=== PATIENT | female | born 1975 | race Caucasian/White ===

== ENCOUNTER → 2016-08-01 | Outpatient (CLI) | payer OTHER ==
--- NOTE | 2016-08-01 11:29 | DIAGNOSTIC IMAGING REPORT ---
ABDOMEN COMPLETE (US) CLINICAL HISTORY: Hepatic mass COMPARISON STUDY: 02/22/2011 FINDINGS: The pancreas appears sonographically normal. The right kidney measures 11 cm in length. The left kidney measures 11.5 cm in length. No focal renal masses are visualized. There is no hydronephrosis. The IVC is unremarkable in appearance. There is no evidence of abdominal aortic aneurysm. The spleen measures 9.9 cm in length. No splenic masses are visualized. There are several tiny echogenic foci within the gallbladder which do not roll and do not shadow. These are consistent with tiny polyps. There is no ductal dilatation. The common bile duct measures 2 mm. In addition to several hepatic cysts, there is a solid right lobe hepatic mass measuring 7.8 x 3.7 x 6.8 cm. This contains a few areas of calcification. This is slightly larger on the prior examination. A prior MRI study indicated this lesion represents focal nodular hyperplasia IMPRESSION: 1. Very slight interval increase in the size of the solid right lobe hepatic mass currently measuring 7.8 x 3.7 x 6.8 cm. Prior MRI study indicated this lesion represents focal nodular hyperplasia 2. Tiny gallbladder polyps. No evidence of ductal dilatation. 3. Several incidental hepatic cysts. 4. No pancreatic, renal, or splenic masses identified Electronically signed by: Cortez Gibbons M.D. 08/01/2016 11:27 AM Dictated Date/Time: 08/01/2016 11:22 AM
== END | disposition home or self-care (01) ==
LOC: C.ULTRBC 10:32
PROVIDERS: ATTEND Family Medicine
DX: R16.0 Hepatomegaly, not elsewhere classified (principal); K82.4 Cholesterolosis of gallbladder; K76.89 Other specified diseases of liver

== ENCOUNTER → 2016-08-27 | Outpatient (CLI) | payer OTHER ==
--- NOTE | 2016-08-28 12:47 | MAMMOGRAPHY REPORT ---
BILATERAL FIRST EVER DIGITAL SCREENING MAMMOGRAM TOMOSYNTHESIS WITH CAD: 08/27/2016 CLINICAL HISTORY: Baseline examination. TECHNIQUE: Breast tomosynthesis in addition to standard 2D mammography was performed. Current study was also evaluated with a Computer Aided Detection (CAD) system. COMPARISON: No prior exams were available for comparison. BREAST COMPOSITION: The tissue of both breasts is extremely dense, which lowers the sensitivity of mammography. FINDINGS: There are a few benign-appearing round and punctate microcalcifications scattered in the breasts. No suspicious mass, architectural distortion or cluster of suspicious microcalcifications is seen. IMPRESSION: ACR BI-RADS CATEGORY 1: NEGATIVE There is no mammographic evidence of malignancy. A 1 year screening mammogram is recommended. The p atient will receive written notification of the results. Approximately 10% of breast cancers are not detected with mammography. A negative mammographic repor t should not delay biopsy if a clinically suggestive mass is present. Dinah Lewis M.D. ay/:08/27/2016 16:59:44 Medical Research Scientist: Priscilla MASTERSON)(Tyr[place]), [facility] letter sent: Normal 1/2 BI-RADS Code: ACR BI-RADS Category 1: Negative
== END | disposition home or self-care (01) ==
LOC: C.MAMM 10:24
PROVIDERS: ATTEND Obstetrics & Gynecology
DX: Z12.31 Encounter for screening mammogram for malignant neoplasm of breast (principal)

== ENCOUNTER → 2017-09-26 | Outpatient (CLI) | payer OTHER ==
--- NOTE | 2017-09-30 08:08 | MAMMOGRAPHY REPORT ---
BILATERAL DIGITAL SCREENING MAMMOGRAM TOMOSYNTHESIS WITH CAD: 09/26/2017 CLINICAL HISTORY: Routine screening. Patient has no complaints. TECHNIQUE: Breast tomosynthesis in addition to standard 2D mammography was performed. Current study was also evaluated with a Computer Aided Detection (CAD) system. COMPARISON: Comparison is made to exam dated: 08/27/2016 mammogram - [facility]. BREAST COMPOSITION: The tissue of both breasts is extremely dense, which lowers the sensitivity of m ammography. FINDINGS: No suspicious masses, calcifications, or areas of architectural distortion are noted in ei ther breast. There has been no significant interval change compared to prior exams. Scattered bilater al benign-appearing calcifications are not significantly changed. IMPRESSION: ACR BI-RADS CATEGORY 2: BENIGN There is no mammographic evidence of malignancy. A 1 year screening mammogram is recommended. The pa tient will receive written notification of the results. Approximately 10% of breast cancers are not detected with mammography. A negative mammographic report should not delay biopsy if a clinically suggestive mass is present. Ines Teran M.D. ah/:09/26/2017 15:05:13 Marketing And Communications Officer: Kiesha CAMPOS,R, M, [facility] letter sent: Normal 1/2 BI-RADS Code: ACR BI-RADS Category 2: Benign
== END | disposition home or self-care (01) ==
LOC: C.MAMM 13:46
PROVIDERS: ATTEND Obstetrics & Gynecology
DX: Z12.31 Encounter for screening mammogram for malignant neoplasm of breast (principal)

== ENCOUNTER → 2017-10-08 | Outpatient (CLI) | payer OTHER ==
--- NOTE | 2017-10-08 07:46 | DIAGNOSTIC IMAGING REPORT ---
ABDOMEN COMPLETE (US) CLINICAL HISTORY: Hepatic mass. COMPARISON STUDY: MRI of the abdomen March 07, 2011 and abdominal ultrasound August 01, 2016. FINDINGS: Liver morphology is normal. Note is again made of a mass within the medial segment left hepatic lobe. This mass now measures 7.2 x 3.2 x 7.7 cm. This is similar to exam of August 01, 2016 when it measured 7.8 x 3.7 x 6.8 cm. This mass contains a central calcification which may reflect calcification within a central scar. A few hepatic cysts are noted. There is no biliary ductal dilatation. A few tiny gallbladder polyps are noted. No shadowing gallstones are noted. The pancreas is within normal limits. There is no biliary ductal dilatation. The size of the spleen is normal. The right kidney measures 11.7 x 3.7 x 4.3 cm and the left measures 12.3 x 4.7 x 4.9 cm. There is no hydronephrosis. Renal echogenicity, size and cortical thickness are normal. The caliber of the abdominal aorta is normal. IMPRESSION: 1. No significant change in a 7.7 cm left hepatic lobe mass since ultrasound of August 01, 2016. Previous MRI demonstrated this to represent focal nodular hyperplasia. 2. No gallstones or biliary ductal dilatation. Electronically signed by: Joe Das M.D. 10/08/2017 7:44 AM Dictated Date/Time: 10/08/2017 7:35 AM
== END | disposition home or self-care (01) ==
LOC: C.ULTR 06:50
PROVIDERS: ATTEND Family Medicine
DX: K76.89 Other specified diseases of liver (principal)